=== PATIENT | female | born 1975 | race Caucasian/White ===

== ENCOUNTER 2023-01-27 13:17 | Emergency (ER) | payer SELFPAY ==
[2023-01-27 13:30] VITALS: BP 116/56; PULSE 63; RESP 20; TEMP 36.7; O2SAT 98; BMI 17.7
--- NOTE | 2023-01-27 14:01 | EXP.UTC ---
Discharge Plan Disposition Patient Disposition: Home, Self-Care Condition: Good Prescriptions Prescriptions: New amoxicillin-pot clavulanate 500-125 mg Tablet 1 tab PO Q12H Qty: 10 0RF No Action cefuroxime axetil 250 mg Tablet 250 mg PO BID terbinafine HCl [Lamisil] 250 mg Tablet 250 mg PO DAILY rosuvastatin [Crestor] 20 mg Tablet 20 mg PO DAILY Referrals Follow up/Referrals: Gregory Musa MD [Primary Care Provider] - See instructions Activity Restrictions/Add. Instructions Additional Instructions/Restrictions: Suture instructions: ?You have required stitches today. Please read the following instructions so you know how to care for them: ?1. Keep wound area dry for the first 24 hours. 2?? May clean gently with mild soap and water, after 48 hours to prevent crusting over suture knots. 3. You may shower if your provider gives permission but do not take a bath until the skin is healed.. 4. Never leave a wet dressing or Band-Aid on your stitches as this allows bacteria to reach the area and may cause infection. Band-aids can cause the wound to sweat and not recommended to wear for long periods of time Watch for signs of infection: ? Increasing redness, tenderness or warmth around the suture site ? Unusual swelling around the site ? Appearance of pus around each suture or any red streaks ? Fever If you develop any of the above signs or symptoms of infection, Follow up with Family Physician immediately 5. Suture removal in 7-10____days 6. Return to [facility] or follow up with family doctor for removal. This can be done by any medical provider dur?ing regular hours on Saturday through Saturday, by appointment. Clinical Impressions Clinical Impression: Laceration Instructions Patient Instructions: DI for Laceration Repair, DI for Laceration Repair -- Simple Discharge ED Provider: Ayanna Bowens [facility] [place] HPI General Stated complaint: AO@home 01/27 LT leg lac Mode of Arrival: Ambulatory Source of Information: Patient Limitations: No Limitations Time Seen by Provider: 01/27/23 14:01 Description of Symptoms (Recalled from Triage Doc. by RN): PATIENT C/O LACERATION TO INNER LEFT ANKLE AFTER CUTTING IT ON A METAL FENCE TODAY. UNSURE OF WHEN LAST TDAP WAS HEENT Symptoms (Recalled from RN notes): No Resp Symptoms (Recalled from RN notes): No Skin Symptoms (Recalled from RN notes): Yes MS Symptoms (Recalled from RN notes): No Functional Status (Recalled from RN notes): WNL History of Present Illness Provider Complaint: Patient states that she was pulling weeds and she cut her left ankle on metal fence States that she noticed one area of it looked like it may need stiches so she came in to get it checked Related Data Home Medications Medication Instructions Recorded Confirmed cefuroxime axetil 250 mg tablet 250 mg PO BID Fungal infection 01/27/23 01/27/23 rosuvastatin 20 mg tablet (Crestor) 20 mg PO DAILY Cholesterol 01/27/23 01/27/23 terbinafine HCl 250 mg tablet 250 mg PO DAILY Fungal infection 01/27/23 01/27/23 of nail Previous Rx's Medication Instructions Recorded amoxicillin 500 mg-potassium 1 tab PO Q12H #10 tabs 01/27/23 clavulanate 125 mg tablet Allergies Allergy/AdvReac Type Severity Reaction Status Date / Time codeine Allergy Verified 01/27/23 13:41 Worker's Comp Is this a Worker's Comp case?: No PFSH [facility] Disclaimer: The information contained in this section may have been updated after the patient was seen, as this information can be updated by other users. Medical History (Updated 01/27/23 @ 14:07 by Ayanna Bowens APRN) Hyperlipidemia Social History Smoking Status: Never smoker alcohol intake: never current occupational status: employed Travel in the last 8 weeks: None ROS Obtained: Yes All systems reviewed & no additional complaints except as documented and Yes Systems reviewed as appropriate & no additional complaints except
[2023-01-27 14:33] VITALS: BP 116/56; PULSE 63; RESP 20; TEMP 36.7; O2SAT 98
== END 2023-01-27 14:45 | disposition home or self-care (01) ==
PROVIDERS: Emergency Provider Nurse Practitioner; PCP Internal Medicine Adolescent Medicine
DX: S91.012A Laceration without foreign body, left ankle, initial encounter (principal); E78.5 Hyperlipidemia, unspecified; W26.8XXA Contact with other sharp object(s), not elsewhere classified, initial encounter; Z23 Encounter for immunization
CPT/HCPCS: 12002; 90471; 90715; 96372; 99204; 99213; G0463